=== PATIENT | female | born 1930 | race Caucasian/White ===

== ENCOUNTER 2016-08-18 07:55 | Outpatient (CLI) | payer MEDICARE ==
[~2016-08-18] VITALS: Ht 154.9 cm; Wt 59.1 kg
--- NOTE | ~2016-08-18 | HEMODYNAMI ---
PATIENT:YANNI GREENFIELD V MEDICAL RECORD: [id number] : 28 LOCATION:[facility] ADMISSION DATE: 08/18/16 Generatedon:08/18/201611:31 Patient name: YANNI GREENFIELD Patient #: [id number] SSN: [id number] : 1930 Date of study: 08/18/2016 Page: Of Hemodynamic Procedure Report Patient Data Patient Demographics Procedure consent was obtained First Name: YANNI Gender: Female Last Name: GIN : 1930 Middle Initial: V Age: 85 year(s) Patient #: [id number] Race: SSN: [id number] Additional ID: [id number] Contact details Address: [address] [place] [address] State: [place] City: [place] Zip code: [address] Past Medical History Allergies Allergen Reaction Date Comments Reported Other allergy 08/18/2016 codeine, sulfa Admission Admission Data Admission Date: 08/18/2016 Admission Time: 7:55 Arrival Date: 08/18/2016 Arrival Time: 10:00 Admit Source: Other Insurance Payor: Medicare Height (in.): 51 BSA: 1.4 (m2) Height (cm.): 129.54 BMI: 36.49 (kg/m2) Weight (lbs.): 135 Weight (kg.): 61.23 Lab Results Lab Result Date: 08/18/2016 Lab Result Time: 0:00 Biochemistry Name Units Result Min Max BUN mg/dl 14 --(--*-)-- 7 18 Creatinine mg/dl 0.9 --(-*--)-- 0.6 1.3 CBC Name Units Result Min Max Hemoglobin g/dl 9.8 *-(----)-- 13.5 17.5 Procedure Procedure Types Cath Procedure Diagnostic Procedure LHC LHC w/Coronaries w/Grafts PCI Procedure Coronary Stent Initial Miscellaneous Procedures Moderate Sedation up to 15 minutes Procedure Description Procedure Date Procedure Date: 08/18/2016 Procedure Start Time: 11:11 Procedure End Time: 11:26 Procedure Staff Name Function Roman Torres MD Performing Physician Tarsha Barrientos RT Scrub Maria Del Carmen Zheng RN Nurse Barbara Andrade RN Nurse Gwen Larson RT Monitor Procedure Data Cath Procedure Fluoroscopy Diagnostic fluoroscopy Total fluoroscopy Time: 4.4 time: 4.4 min min Diagnostic fluoroscopy Total fluoroscopy dose: 716 dose: 716 mGy mGy Contrast Material Contrast Material Type Amount (ml) Isovue 370 145 Entry Location Entry Primary Successful Side Size Upsize Upsize Entry Closure Succes sful Closure Location (Fr) 1 (Fr) 2 (Fr) Remarks Device Remarks Femoral Right 5 Fr 6 Fr Exoseal artery Short Estimated blood loss: 5 ml Diagnostic catheters Device Type Used For End Catheter Placement Cordis 5Fr Pigtail LV Angiography Catheter (MP) Cordis 5Fr JL 4.0 Left Coronary Catheter (MP) Angiography Cordis 5Fr 3DRC Catheter Right Coronary (MP) Angiography Diagnostic Infinity 5Fr SVG Angiography AR 2 MOD catheter Procedure Complications No complications Procedure Medications Medication Administration Route Dosage Oxygen NC 2 l/min Heparin Flush Bag added to field 2 bags (1000units/500ml NS) Lidocaine 2% added to field 20 0.9% NaCl I.V. 100 ml/hr Versed I.V. 1 mg Fentanyl I.V. 25 mcg Versed I.V. 0.5 mg Heparin Bolus I.V. 4000 units Integrilin (Bolus I.V. 5 ml 2mg/ml) Plavix P.O. 600 mg Hemodynamics Rest BSA: 1.4 (m2) HGB: 9.8 (g/dl) O2 Consumption: Estimated: 128.22 (ml/min) O2 Cons umption indexed: Estimated:91.59 (ml/min/m) Heart Rate: 78 (bpm) Pressure Samples Time Site Value (mmHg) Purpose Heart Use Rate(bpm) 11:12 LV 52/11,14 Snapshot 72 Snapshots Pre Cath Intra NCS Post Cath Vital Signs Time Heart Resp SPO2 NIBP (mmHg) Rhythm Pain Sedation Rate (ipm) (%) Status Level (bpm) 10:53:26 70 16 100 142/70(109) A-Fib 0 (11) 10(A) , No pain 10:57:40 73 15 100 138/72(106) A-Fib 0 (11) 10(A) , No pain 11:01:56 73 14 98 109/58(91) A-Fib 0 (11) 10(A) , No pain 11:06:55 83 26 98 Measuring A-Fib 0 (11) 10(A) , No pain 11:07:05 70 33 97 119/76(97) A-Fib 0 (11) 10(A) , No pain 11:11:17 72 17 97 108/54(93) A-Fib 0 (11) 9(A) , No pain 11:15:23 74 15 97 109/58(88) A-Fib 0 (11) 9(A) , No pain 11:19:32 68 16 99 107/51(91) A-Fib 0 (11) 9(A) , No pain 11:23:38 69 15 100 106/58(79) A-Fib 0 (11) 10(A) , No pain Medications Time Medication Route Dose Verified Delivered Reason Notes Effectiveness by by 10:52:52 Oxygen NC 2 Barbara Barbara used for l/min Raymond Raymond vest baster RN 10:53:02 Heparin Flush added 2 Babrara Barbara used for Bag to bags Raymond Raymond procedure (1000units/500ml field RN RN NS) 10:53:15 Lidocaine 2% added 20ml Barbara Barbara used for to vial Raymond Raymond procedure field RN RN 10:53:27 0.9% NaCl I.V. 100 Barbara Barbara used for ml/hr Raymond Raymond vest baster RN 11:09:35 Fentanyl I.V. 25 Barbara Barbara mcg Raymond Raymond RN RN 11:10:29 Versed I.V. 1 mg Barbara Barbara for sedation Raymond Raymond RN RN 11:18:19 Heparin Bolus I.V. 4000 Barbara Barbara for verif ied units Raymond Raymond anticoagulation with RN JASIEL torres 11:18:37 Versed I.V. 0.5 Barbara Barbara for sedation mg Raymond Raymond RN RN 11:20:33 Integrilin I.V. 5 ml Barbara Barbara for waste d 5 (Bolus 2mg/ml) Raymond Raymond antiplatelet ml of RN RN therapy vial 11:26:01 Plavix P.O. 600 Barbara Barbara for mg Raymond Raymond antiplatelet RN RN therapy Procedure Log Time Note 10::18 Informed consent obtained and on chart 10:27:50 Admit Source: Other 10::02 Patient Height : 129.54 cm 10:28:12 Patient Weight : 61.23 kg 10:50:23 Lab Result : Hemoglobin 9.8 g/dl 10:50:23 Lab Result : Creatinine 0.9 mg/dl 10:50:23 Lab Result : BUN 14 mg/dl 10:50:31 Procedure type changed to Cath procedure, Diagnostic procedure, LHC, LHC w/Coronaries w/Grafts, PCI procedure, Coronary Stent Initial, Miscellaneous Procedures, Moderate Sedation up to 15 minutes 10:50:53 Diagnostic Cath Status : Elective 10:51:45 Gwen Larson RT(R) sent for patient. Start room use. 10:51:46 Time tracking: Regular hours 10:51:51 Plan of Care:Hemodynamics will remain stable., Cardiac rhythm will remain stable., Comfort level will be maintained., Respiratory function will remain adequate., Patient/ family verbilizes understanding of procedure., Procedure tolerated without complication., Recovers from procedure without complications.. 10:52:03 Patient received from Pre/Post Procedure Room to [facility] 2 Alert and oriented. Tansferred to table in Supine position. 10:52:09 Warm blankets applied, and jackie hugger turned on for patient comfort. 10:52:10 Correct patient and procedure confirmed by team. 10:52:12 ECG and BP/O2 sat monitors applied to patient. 10:52:13 Vital chart was started 10:52:20 Baseline sample Acquired. 10:52:28 Rhythm: sinus rhythm 10:52:32 Full Disclosure recording started 10:52:52 Oxygen 2 l/min NC was administered by Barbara Andrade RN; used for procedure; 10:52:52 H&P Date Dictated: 08/14/2016 Within 30 days and on chart., H&P Addendum completed by physician on day of procedure. (MUST COMPLETE FOR ALL OUTPATIENTS). 10:53:02 Heparin Flush Bag (1000units/500ml NS) 2 bags added to field was administered by Barbara Andrade RN; used for procedure; 10:53:15 Lidocaine 2% 20ml vial added to field was administered by Barbara Andrade RN; used for procedure; 10:53:27 0.9% NaCl 100 ml/hr I.V. was administered by Barbara Andrade RN; used for procedure; 10:54:46 Pre-procedure instructions explained to patient. 10:54:46 Pre-op teaching completed and patient verbalized understanding. 10:54:48 Family in waiting room. 10:55:04 Patient allergic to Other allergycodeine, sulfa 10:55:15 Is the patient allergic to Iodine/contrast media? No. 10:55:17 Was the patient premedicated? No 10:55:20 Is patient on blood thinner?Yes 10:55:29 ACC The patient was administered the following blood thiners within the last 24 hours: Coumadin 10:55:40 Patient diabetic? Yes. 10:57:21 If diabetic: On Metformin? No 10:57:25 Previous problem with sedation/anesthesia? No ? 10:57:27 Snore? Yes 10:57:28 Sleep apnea? Yes 10:57:29 Deviated septum? No 10:57:30 Opens mouth fully? Yes 10:57:30 Sticks out tongue? Yes 10:57:32 Airway obstruction? No ? 10:57:36 Dentures? Yes out 10:57:53 Pre procedure: right dorsailis pedis pulse 1+ Palpable, but thready & weak; easily obliterated 10:58:01 Patient pain scale 0/10 ?. 10:58:08 IV patent on arrival in right forearm with 0.9% NaCl at KVO. 10:58:11 Lab results completed and on chart. 10:58:16 Right groin area was prepped with chlora-prep and draped in sterile fashion 10:58:17 Alarms reviewed by R. N. 10:58:17 Sharps counted by scrub and verified by R.N. 11:09:35 Fentanyl 25 mcg I.V. was administered by Barbara Andrade RN; ; 11:09:38 Physician arrived 11::40 --------ALL STOP TIME OUT------ 11::40 Final Timeout: patient, procedure, and site verified with staff and physician. All members of the team are in agreement. 11:09:42 Right groin site verified by team. 11:09:46 Physical assessment completed. ASA score P 2 - A patient with mild systemic disease as per Roman Torres MD. 11:09:50 Sedation plan: IV Moderate Sedation Versed, Fentanyl 11:10:20 Use device set Femoral Dx 11:10:21 Acist Syringe opened to sterile field. 11:10:22 Bag Decanter opened to sterile field. 11:10:23 Medline Cath Pack opened to sterile field. 11:10:23 Terumo 5Fr [place] Sheath opened to sterile field. 11:10:25 St Fabien 260cm J .035 wire opened to sterile field. 11:10:27 Acist Hand Control opened to sterile field. 11:10:29 Versed 1 mg I.V. was administered by Barbara Andrade RN; for sedation; 11:10:29 Acist Manifold opened to sterile field. 11:10:29 Diagnostic Infinity 5Fr Multipack catheter opened to sterile field. 11:10:30 Tegaderm 4 x 4 opened to sterile field. 11:11:13 Zero performed for pressure channel P1 11:11:24 Procedure started. 11:11:33 Local anesthetic to right femoral artery with Lidocaine 2% by Roman Torres MD.INITIAL ACCESS ONLY 11:11:40 A 5 Fr sheath was inserted into the Right Femoral artery 11:11:45 A Cordis 5Fr Pigtail Catheter (MP) was advanced over the wire and used for LV Angiography. 11:12:25 LV hemodynamics recorded. 11:12:26 LV gram done using CHANCE 11:12:28 Injector settings: Ml/sec: 5, Volume: 15, 11:12:33 EF : 55 % 11:12:37 Catheter removed. 11:12:41 A Cordis 5Fr JL 4.0 Catheter (MP) was advanced over the wire and used for Left Coronary Angiography. 11:13:57 LCA angiography performed. 11:13:59 Injector settings: Ml/sec: 3, Volume: 6, 11:14:03 Catheter removed. 11:14:08 A Cordis 5Fr 3DRC Catheter (MP) was advanced over the wire and used for Right Coronary Angiography. 11:14:54 MIKE angiography performed. 11:15:18 White Whisper J 300cm 0.014 guide wire opened to sterile field. 11:15:20 Terumo 6Fr [place] Sheath opened to sterile field. 11:15:20 Merit BasixCompak Inflation Kit opened to sterile field. 11:15:35 RCA angiography performed. 11:15:39 Injector settings: Ml/sec: 3, Volume: 6, 11:15:55 Catheter removed. 11:15:59 A Diagnostic Infinity 5Fr AR 2 MOD catheter was advanced over the wire and used for SVG Angiography. 11:18:19 Heparin Bolus 4000 units I.V. was administered by Barbara Andrade RN; for anticoagulation; verified with dr torres 11:18:37 Versed 0.5 mg I.V. was administered by Barbara Andrade RN; for sedation; 11:19:27 SVG angiography performed. 11:19:29 Catheter removed. 11:19:30 Proceeding to intervention. 11:20:19 Sheath upsized to a 6 Fr Short. 11:20:31 Spotlighttronic Launcher 6Fr EBU 4.0 guide catheter opened to sterile field. 11:20:33 Integrilin (Bolus 2mg/ml) 5 ml I.V. was administered by Barbara Andrade RN; for antiplatelet therapy; wasted 5 ml of vial 11::37 6 Fr ebu 4 guide catheter was inserted over the wire 11:20:53 whisper wire advanced. 11:20:54 Wire advanced across lesion. 11:22:42 Inflation Number: 1 A Biofreedom 2.5 x 11 stent (No Cost Implant) was prepped and advanced across the Mid CX. The stent was deployed at 13 JOHN for 0:10 (min:sec). 11:23:20 Stent catheter was removed intact over wire. 11:23:21 Wire removed. 11:23:22 Guide catheter removed. 11:24:30 Cordis 6Fr Exoseal opened to sterile field. 11:25:03 Sheath removed intact; hemostasis achieved with Exoseal to the Right Femoral artery. 11:25:06 Procedure ended.(Physican Out) :25:31 Fluoroscopy time 04.40 minutes. 11:25:50 Fluoroscopy dose: 716 mGy 11:25:50 Flurop Dose total: 716 11:25:53 Contrast amount:Isovue 370 145ml. 11:25:54 Sharps counted by scrub and verified by R.N. 11:25:56 Insertion/operative site no bleeding no hematoma. 11:25:58 Post-op/insertion site Right Femoral artery dressed using a 4 x 4 and Tegaderm. 11:26:00 Post right femoral artery:stable 11:26:01 Plavix 600 mg P.O. was administered by Barbara Andrade RN; for antiplatelet therapy; 11:26:02 Post Procedure Pulses reassessed and unchanged 11:26:04 Post procedure rhythm: unchanged. 11:26:07 Estimated blood loss: 5 ml 11:26:08 Post procedure instruction explained to patient.Patient verbalizes understanding. 11:26:08 Patient needs reinforcement of post procedure teaching. 11:26:11 Procedure and supply charges have been captured, reviewed, submitted and are correct. 11:26:15 Procedure Complication : No complications 11::18 Vital chart was stopped 11::19 See physician's report for complete and final results. 11::24 Report given to Pre/Post Procedure Room. 11::28 Patient transfered to Pre/Post Procedure Room with Stretcher. 11::31 Procedure ended. 11::31 Full Disclosure recording stopped 11::45 ACC-PCI Only Patient was given prescriptions, or instructed by Roman Torres MD to start/continue the following medications upon discharge: Plavix 11::46 End room use (Document Last) 11:30:34 Arrival Date: 08/18/2016 10:00:00 AM 11:30:41 Insurance Payor : Medicare Intervention Summary Intervention Notes Time ActionType Lesion and Equipment Action# Pressure Duration Attributes Used 11:22:42 Place stent Mid CX Biofreedom 1 13 00:10 2.5 x 11 stent (No Cost Implant) Device Usage Item Name Manufacture Quantity Catalog Hospital Part Current Minimal Lot# / Number Charge Number Stock Stock Serial# Code Acist Acist 1 [id number] [id number] 128087 928618 20 Syringe Medical Systems Inc Bag Microtek 1 2002S 882331 14498 871380 5 DecOtelic Medical Inc. Medline Cardinal 1 [id number] 789920 12122 084226 5 Cath FitBionic Terumo 5Fr Terumo 1 [id number] 050315 712739 988817 [address] Fabien 1 060284 633507 785597 727162 30 260cm J .035 wire Acist Hand Acist 1 43269 251622 163292 718542 5 Control Medical Systems Inc Acist Acist 1 85960 931939 836975 261538 5 [facility] Medical Systems Inc Diagnostic Cardinal 1 [id number] 230751 02802 163544 30 Infinity Health 5Fr Multipack catheter Tegaderm 4 3M 1 1626W 907796 903572 652946 5 x 4 Cordis 5Fr Cardinal 1 645130 5 Pigtail Health Catheter (MP) Cordis 5Fr Cardinal 1 757161 5 JL 4.0 Health Catheter (MP) Cordis 5Fr Cardinal 1 814110 5 3DRC Health Catheter (MP) White White 1 [id number] 864951 269072 819244 5 Whisper J Vascular 300cm 0.014 guide wire Terumo 6Fr Terumo 1 [id number] 468614 502667 537199 40 [place] Sheath Merit Merit 1 BH8439 622640 739514 243568 15 Enertec Systems Medical Inflation Kit Diagnostic Cardinal 1 [id number] 989328 553353 855039 20 Infinity Health 5Fr AR 2 MOD catheter Medtronic Medtronic 1 [id number] 744464 55815 367633 1 Launcher 6Fr EBU 4.0 guide catheter Biofreedom Biosensors 1 BF2-0292 553714 235573 5 [id number] 2.5 x 11 Europe SA stent (No Cost Implant) Cordis 6Fr Cardinal 1 EX600 573565 103069 816756 10 [facility] [employer] Signature Audit Kila Stage Time Signature Unsigned Intra-Procedure 08/18/2016 Gwen Larson 11:31:02 AM RT(R) Signatures Monitor : Gwen Larson RT Signature : Date : Time : [facility] [address] [place] [address]
[~2016-08-18 07:55] MED LIST: ACETAMINOPHEN500 M1 PO; ATIVAN0.5 MG PO; CIPRO500 MG; CIPRO500 MG PO; COLACE100 MG PO; COUMADIN5 MG PO; FOLIC ACID1 MG PO; GLUCOPHAGE500 MG; K-PHOS PO; LANOXIN125 MCG PO; LIORESAL 10 MG10 MG PO; LOMOTIL TABLET1 TAB PO; LOPRESSOR25 MG PO; MILK OF MAGNESI30 ML PO; MIRALAX17 GM PO; NIFEREX PO; PRAVACHOL40 MG PO; ULTRAM50 MG PO; ZAROXOLYN5 MG PO
[2016-08-18] MEDS ORDERED: FUROSEMIDE40 MG (08:22)
[2016-08-18] MEDS ORDERED: GLIMEPIRIDE1 MG PO (08:22)
[2016-08-18] MEDS ORDERED: ALDACTONE25 MG PO (08:23)
[2016-08-18] MEDS ORDERED: K-TAB10 MEQ PO (08:25)
[2016-08-18] MEDS ORDERED: OSTEO BI-FLEX1 EAC1 PO (08:26)
[2016-08-18] MEDS ORDERED: VITAMIN D31000 UNIT PO (08:26)
[2016-08-18] MEDS ORDERED: ASCORBIC ACID500 MG PO (08:27)
[2016-08-18] MEDS ORDERED: GINSENG PO (08:28)
[2016-08-18] MEDS ORDERED: ASTRAGALUS PO (08:29)
[2016-08-18] MEDS ORDERED: [UNRECOGNIZED DRUG - OTHER] PO (08:30)
[2016-08-18] MEDS ORDERED: ALPHA LIPOIC PO (08:30)
[2016-08-18] MEDS ORDERED: [UNRECOGNIZED DRUG - OTHER] PO (08:31)
[2016-08-18] MEDS ORDERED: QUERCETIN PO (08:31)
[2016-08-18] MEDS ORDERED: TUMERIC PO (08:31)
[2016-08-18] MEDS ORDERED: TUMS500 MG PO (08:32)
[2016-08-18 08:35] VITALS: BP 130/64; Ht 154.9 cm; Wt 59.1 kg
[2016-08-18 08:46] LABS: BASOPHILS 0.3 % (0-2); EOSINOPHILS 3.5 % (0-7); HEMATOCRIT 31.8 % (36.0-48.0); HEMOGLOBIN 9.8 g/dL (12-16); IMMATURE GRANULOCYTES 0.3 % (0-5); LYMPHOCYTES 20.6 % (15-50); MCH 28.9 pg (26.0-34.0); MCHC 30.8 g/dL (31.0-37.0); MCV 93.8 fL (80.0-100.0); MONOCYTES 13.1 % (2-11); NEUTROPHILS 62.2 % (40-80); PLATELET COUNT 155 10x3/uL (130-400); RBC 3.39 10x6/uL (4.00-5.40); RDW 15.1 % (11.5-14.5)
[2016-08-18 08:58] LABS: ANION GAP 12.1 mmol/L (8-16); CALCIUM 9.9 mg/dL (8.5-10.1); CARBON DIOXIDE 28.2 mmol/L (21.0-32.0); CREATININE - SERUM 1.4 mg/dL (0.6-1.3); POTASSIUM - SERUM 4.3 mmol/L (3.5-5.1)
[2016-08-18 09:16] LABS: CKMB 3.2 U/L (0.0-3.6); CREATINE KINASE 59 UL (21-215); TROPONIN-I 0.046 ng/mL (0.000-0.060)
[2016-08-18] MEDS ORDERED: PLAVIX75 MG PO (12:55)
--- NOTE | 2016-08-18 15:33 | NUR ---
1200 LYING FLAT, ROOM AIR W NO RESP DISTRESS. ALL VITALS WNL. R GROIN 6F EXOSEAL C/D/I WITH NO HEMATOMA OR BLEEDING. FAMILY AT BEDSIDE. DENIES NEEDS AT THIS TIME. 1245 R GROIN REMAINS C/D/I WITH NO HEMATOMA OR BLEEDING. VITALS WNL. 1345 EATING TURKEY SANDWICH WITH ASSIST FROM FAMILY. R GROIN C/D/I, VITALS ALL WNL. ROOM AIR NO DISTRESS. NO COMPLAINTS AT THIS TIME. 1500 ELEVATED HOB TO 30DEGREES, WILL MONITOR R GROIN FOR BLEEDING. 1535 AMBULATED TO BATHROOM TO VOID. R GROIN REMAINS C/D/I BACK TO BEDSIDE. ALL VITALS WNL.
--- NOTE | 2016-08-18 15:58 | NUR ---
PIV REMOVED FROM R AC WITH BANDAID APPLIED. UP TO BEDSIDE TO DRESS WITH ASSIST FROM DAUGHTER.
--- NOTE | 2016-08-18 15:59 | NUR ---
R GROIN REMAINS C/D/I WITH NO HEMATOMA OR BLEEDING. D/C INSTRUCTIONS DISCUSSED WITH PATIENT AND FAMILY AT BEDSIDE. WHEELED OUT VIA WHEELCHAIR BY CATH TEAM.
--- NOTE | 2016-08-19 18:08 | OP ---
PATIENT NAME: YANNI GREENFIELD V MEDICAL RECORD: [id number] :28 LOCATION:D.[facility] ADMISSION DATE: SURGEON: JAYLIN LOBO MD DATE OF OPERATION: 08/18/2016 PROCEDURES: 1. PTCA stent of left circumflex. 2. Left heart catheterization. 3. Selective coronary angiography. 4. Vein graft angiography. INDICATION: Angina and coronary artery disease. PROCEDURE PERFORMED: After informed consent was obtained and after detailed explanation of risks, benefits as well as alternative therapies, the patient elected to proceed with angiogram and angioplasty. The right femoral area was prepped and draped in normal sterile fashion. The right femoral artery was cannulated via modified Seldinger technique with placement of 6-Sammarinese sheath. All catheters exchanged through this sheath. FINDINGS: The left ventriculogram was performed in the standard 30-degree CHANCE view, reveals preserved cardiac wall motion throughout all segments. Overall ejection fraction is 60%. SELECTIVE CORONARY ANGIOGRAPHY: 1. Left main showed no significant angiographic disease. 2. Left anterior descending is totally occluded proximally. 3. Vein graft to the LAD is widely patent. 4. Left circumflex ____ has a 70% to 80% stenosis in the mid vessel. 5. The right coronary is widely patent with no significant disease. PTCA STENT OF THE LEFT CIRCUMFLEX: The stent used is 2.5 x 11 mm BioFreedom. Result was 0% residual stenosis. OVERALL IMPRESSION: Successful percutaneous transluminal coronary angioplasty stent of the left circumflex going from 70% to 80% initial stenosis to 0% residual. TRANSINT:[id number] Voice Confirmation ID: [id number] DOCUMENT ID: [id number] JAYLIN LOBO MD at 1808 CC: [id number] DICTATION DATE: 08/18/16 1131 TRAY PACKER: 08/18/162003 [facility] CLI 08/18/16 [place] [id number]
== END 2016-08-18 16:00 | disposition home or self-care (01) ==
LOC: D.CATH 07:55
PROVIDERS: Internal Medicine Interventional Cardiology
DX: I25.10 Atherosclerotic heart disease of native coronary artery without angina pectoris (principal); R06.02 Shortness of breath; I10 Essential (primary) hypertension; E78.5 Hyperlipidemia, unspecified; Z00.6 Encounter for examination for normal comparison and control in clinical research program
CPT/HCPCS: 93459; C9600

== ENCOUNTER → 2016-10-14 11:39 | Outpatient (CLI) | payer MEDICARE ==
[2016-08-18 08:35] VITALS: BMI 24.6
[~2016-10-14 11:39] MED LIST changes: +ALDACTONE25 MG PO; +ALPHA LIPOIC PO; +ASCORBIC ACID500 MG PO; +ASTRAGALUS PO; +FUROSEMIDE40 MG; +GINSENG PO; +GLIMEPIRIDE1 MG PO; +K-TAB10 MEQ PO; +OSTEO BI-FLEX1 EAC1 PO; +PLAVIX75 MG PO; +QUERCETIN PO; +TUMERIC PO; +TUMS500 MG PO; +VITAMIN D31000 UNIT PO; +[UNRECOGNIZED DRUG - OTHER] PO; +[UNRECOGNIZED DRUG - OTHER] PO
--- NOTE | 2016-10-14 14:19 | NUR ---
Nutrition education for DMT2, CKD stage 3, coumadin therapy, CHF: S: Pt reports she is very confused about what she can and can't eat due to her many health issues. Pt appears very frail and out of breath at this time. Pt reports she is retaining some fluid at this time due to CHF. O: 85 year old female Ht: 5'1" Wt: 130# IBW: 105# +/-10% BMI: 24.6 PMH: CHF, CVA, HTN, DMT2, CKF stage 3, a-fib Meds: coumadin, Glimperide, spironalactone A: Reviewed moderate protein, moderate CHO diet with emphasis on being consistent with meals and not skipping meals. Reviewed food lists of food to include and not include in daily diet. Advised pt to limit fruit to no more than 2-3 servings/day and eat low to moderate potassium fruits. Reviewed vegetable list to include/eliminate. Reviewed sample menus. Pt is still confused re: what to eat. RDN advised pt to eat what she likes to eat but keep portion sizes appropriate. Reviewed portion sizes of common foods eaten. Due to patients advanced age, food restrictions is not recommended. P: Provided pt with printed diet information and RDN name and phone number. RDN will be available if needed. Thank you for the consult.
== END ==
LOC: D.FANS 11:39
DX: E11.22 Type 2 diabetes mellitus with diabetic chronic kidney disease (principal); N18.3 Chronic kidney disease, stage 3 (moderate); I50.9 Heart failure, unspecified

== ENCOUNTER 2018-10-24 13:15 | Emergency (ER) | payer MEDICARE ==
[2018-10-24 13:31] VITALS: Ht 154.9 cm
[2018-10-24 14:07] LABS: BASOPHILS 0.5 % (0-2); EOSINOPHILS 2.3 % (0-7); HEMATOCRIT 33.8 % (36.0-48.0); HEMOGLOBIN 10.6 g/dL (12-16); LYMPHOCYTES 12.5 % (15-50); MCHC 31.4 g/dL (31.0-37.0); MCV 92.3 fL (80.0-100.0); MEAN PLATELET VOLUME 11.5 fL (7.4-10.4); MONOCYTES 9.7 % (2-11); RBC 3.66 10x6/uL (4.00-5.40); RDW 16.3 % (11.5-14.5); WBC 4.3 10x3/uL (4.8-10.8)
[2018-10-24 14:10] LABS: PLATELET COUNT 112 10x3/uL (130-400)
[2018-10-24 14:26] LABS: INR 2.4 (0.85-1.17); PROTIME 25.5 SECONDS (11.6-15.0)
[2018-10-24 14:27] LABS: APTT 49.1 SECONDS (22.8-39.4)
[2018-10-24 14:33] LABS: ALBUMIN 3.9 g/dL (3.4-5.0); ALKALINE PHOSPHATASE 48 U/L (46-116); ALT (SGPT) 22 U/L (10-68); BILIRUBIN - TOTAL 0.62 mg/dL (0.2-1.3); CALC OSMOLALITY 284 mosm/kg (275-300); CALCIUM 9.4 mg/dL (8.5-10.1); CARBON DIOXIDE 26.5 mmol/L (21.0-32.0); CHLORIDE - SERUM 100 mmol/L (98-107); CREATININE - SERUM 1.8 mg/dL (0.6-1.3); POTASSIUM - SERUM 4.6 mmol/L (3.5-5.1); PROTEIN - SERUM 7.5 g/dL (6.4-8.2); SODIUM 134 mmol/L (136-145); UREA NITROGEN 39 mg/dL (7-18); eGFR NON AFRICAN AMERICAN 28 mL/min (90-120)
[2018-10-24 14:34] LABS: GLUCOSE 248 mg/dL (74-106)
[2018-10-24 14:44] LABS: CKMB 0.4 U/L (0.0-3.6); CREATINE KINASE 61 UL (21-215)
[2018-10-24 14:46] LABS: TROPONIN-I < 0.017 ng/mL (0.000-0.060)
[2018-10-24] MEDS ORDERED: ULTRAM50 MG PO (15:00)
[2018-10-24 15:35] VITALS: BP 130/49
== END 2018-10-24 15:35 | disposition home or self-care (01) ==
LOC: D.ER 13:15
PROVIDERS: Family Medicine
DX: M54.6 Pain in thoracic spine (principal)

== ENCOUNTER → 2019-01-24 13:34 | Outpatient (CLI) | payer MEDICARE | END | disposition home or self-care (01) | LOC: D.RT 13:34 | PROVIDERS: ATTEND Emergency Medicine | DX: R06.02 Shortness of breath (principal) ==

== ENCOUNTER → 2019-03-07 12:01 | Outpatient (CLI) | payer MEDICARE ==
--- NOTE | ~2019-03-07 | EC ---
PATIENT:YANNI GREENFIELD V DATE OF SERVICE: 03/07/19 SEX: F MEDICAL RECORD: [id number] DATE OF : 28 [facility] AGE OF PATIENT: 88 ADMISSION DATE: 03/07/19 REFERRING PHYSICIAN: INTERPRETING PHYSICIAN: AJYLIN TORRES MD ECHOCARDIOGRAM REPORT ECHO CHARGES 4 ECHO COMPLETE Date: 03/07/19 CLINICAL DIAGNOSIS: MAURICIO/TR/AVR/MVR H/O CAD ECHOCARDIOGRAPHIC MEASUREMENTS (adult normal given) AC root (d.<3.7cm) 2.6 cm LV Septum d (<1.2 cm> 1.0 cm Valve Excursion 0.8 cm LV Septum (systole) 1.6 cm Left Atria (s.<4.0cm> 5.2 cm LVPW d(<1.2cm) 1.2 cm RV (d.<2.3cm) 3.1 cm LVPW (sytole) 1.8 cm LV diastole(<5.6CM) 5.0 cm MV E-F(>70mm/sec) cm LV systole 3.3 cm LVOT Diameter 1.8 cm MV exc.(>10mm) cm Est.ejection fraction (50-75%) % DOPPLER: LVIT cm/sec A 41.0 cm/sec E 116 cm/sec LA cm/sec RVSP 52.0 mmHg LVOT 83.0 cm/sec AOP1/2T m/s Asc. Ao 197 cm/sec RVOT 45.0 cm/sec RA cm/sec PA 70.0 cm/sec AV Gradient Peak 16.0 mmHg AV Mean 8.7 mmHg AV Area 1.1 cm MV Gradient Peak 9.3 mmHg MV Mean 2.7 mmHg MV Area cm COMMENTS: OP - HC Director Digital Sales: 1 MONTRELL ANDREW Cleaning Validation Consultant: 1 Dr. Torres TAPE# PACS Pericardial Effusion N DATE OF SERVICE: FINDINGS: 1. Left ventricular chamber size is mildly dilated. Left ventricular systolic function is moderately reduced at 35% to 40%. 2. Left atrium, right atrium, and right ventricle chamber sizes are moderately dilated. Left atrium measures 5.2 cm. 3. 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 The mitral valve was as well replaced with mechanical prosthesis with normal structure and function in ECHOCARDIOGRAM REPORT [id number] YANNI GREENFIELD V this position. 4. Doppler interrogation only reveals moderate tricuspid regurgitation, no other valvular insufficiency or stenosis. Pulmonary systolic pressure is estimated 52 mmHg. 5. No evidence of pericardial effusion or left ventricular thrombus. TRANSINT:[id number] Voice Confirmation ID: [id number] DOCUMENT ID: [id number] JAYLIN TORRES MD CC: [id number] DICTATION DATE: 03/08/19 1143 BACK WEDGER: 03/08/19 1248 DEP CLI 03/07/19 [place] [id number] [place] [id number]
== END | disposition home or self-care (01) ==
LOC: D.HCCECHO 12:01
PROVIDERS: ATTEND Internal Medicine Interventional Cardiology
DX: I25.10 Atherosclerotic heart disease of native coronary artery without angina pectoris (principal)

== ENCOUNTER 2019-03-14 07:09 | Outpatient (CLI) | payer MEDICARE ==
[~2019-03-14] VITALS: Ht 152.4 cm; Wt 59.1 kg
--- NOTE | ~2019-03-14 | HEMODYNAMI ---
PATIENT:YANNI GREENFIELD V MEDICAL RECORD: [id number] : 28 LOCATION:[facility] ADMISSION DATE: 03/14/19 Generatedon:03/15/201914:49 Patient name: YANNI GREENFIELD Patient #: [id number] SSN: [id number] : 1930 Date of study: 03/14/2019 Page: Of Hemodynamic Procedure Report Patient Data Patient Demographics First Name: YANNI Gender: Female Last Name: GIN : 1930 [facility] Initial: V Age: 88 year(s) Patient #: [id number] Race: SSN: [id number] Additional ID: [id number] Contact details [address]: [address] [place] [address] State: [place] City: [place] Zip code: [address] Past Medical History Allergies Allergen Reaction Date Comments Reported Other allergy 08/18/2016 codeine, sulfa Other allergy 03/14/2019 Codeine, Sulfa Admission Admission Data Admission Date: 03/14/2019 Admission Time: 7:09 Arrival Date: 03/14/2019 Arrival Time: 0:00 Admit Source: Other Insurance Payor: Private health insurance [facility] #: [id number] Height (in.): 59.84 BSA: 1.55 (m2) Height (cm.): 152 BMI: 25.54 (kg/m2) Weight (lbs.): 130.07 Weight (kg.): 59 Lab Results Lab Result Date: 03/14/2019 Lab Result Time: 0:00 Biochemistry Name Units Result Min Max BUN mg/dl 47 --(----)-* 7 18 Creatinine mg/dl 1.9 --(----)-* 0.6 1.3 eGFR ml/min 26 *-(----)-- 90 120 NONAFRICAN CBC Name Units Result Min Max Hemoglobin g/dl 11.6 *-(----)-- 13.5 17.5 Coagulation Name Units Result Min Max INR units 1.41 --(----)-* 0.85 1.17 PT sec 16.6 --(----)-* 11.6 15 Procedure Procedure Types Cath Procedure Diagnostic Procedure [facility] w/Coronaries w/Grafts FFR/IVUS FFR Initial Intra-Coronary IVUS Initial Sedation Charges Moderate Sedation up to 15 minutes Procedure Description Procedure Date Procedure Date: 03/14/2019 Procedure Start Time: 10:47 Procedure End Time: 11:12 Procedure Staff Name Function Roman Torres MD Performing Physician Tarsha Barrientos RT Monitor Sim Lindsey RN Nurse Melany Lara RT Scrub Indication Dyspnea Procedure Data Cath Procedure Fluoroscopy Diagnostic fluoroscopy Total fluoroscopy Time: 4.6 time: 4.6 min min Diagnostic fluoroscopy Total fluoroscopy dose: 579 dose: 579 mGy mGy Contrast Material Contrast Material Type Amount (ml) Isovue 300 56 Entry Location Entry Primary Successful Side Size Upsize Upsize Entry Closure Succes sful Closure Location (Fr) 1 (Fr) 2 (Fr) Remarks Device Remarks Femoral Right 5 Fr 6 Fr Exoseal artery Short Estimated blood loss: 10 ml Diagnostic catheters Device Type Used For End Catheter Placement MULTIPACK JL 4.0 5Fr Procedure catheter MULTIPACK 3DRC 5Fr Procedure catheter DIAGNOSTIC AR MOD 5Fr Procedure Catheter ([id number]) Procedure Complications No complications Procedure Medications Medication Administration Route Dosage 0.9% NaCl I.V. 100 ml/hr Oxygen etCO2 Nasal cannula 2 l/min Heparin Flush Bag added to field 2 bags (1000units/500ml NS) Lidocaine 2% added to field 20 Versed I.V. 1 mg Fentanyl I.V. 50 mcg Versed I.V. 0.5 mg Fentanyl I.V. 25 mcg Versed I.V. 0.5 mg Fentanyl I.V. 25 mcg Hemodynamics Rest BSA: 1.55 (m2) HGB: 11.6 (g/dl) O2 Consumption: Estimated: 210.8 (ml/min) O2 Con sumption indexed: Estimated:136 (ml/min/m) Pre Cath Intra NCS Post Cath Vital Signs Time Heart Resp SPO2 etCO2 NIBP (mmHg) Rhythm Pain Sedation Rate (ipm) (%) (mmHg) Status Level (bpm) 10:39:42 74 22 100 29.9 145/63(108) A-Fib 0 (11) 10(A) , No pain 10:44:00 74 18 97 38.1 137/66(105) A-Fib 0 (11) 10(A) , No pain 10:48:14 79 11 98 38.1 133/71(105) A-Fib 0 (11) 10(A) , No pain 10:52:26 66 16 95 38.1 144/77(119) A-Fib 0 (11) 10(A) , No pain 10:56:48 83 12 93 35.8 132/60(107) A-Fib 0 (11) 9(A) , No pain 11:01:00 77 15 94 29.9 129/70(108) A-Fib 0 (11) 9(A) , No pain 11:05:14 73 13 94 133/64(96) A-Fib 0 (11) 10(A) , No pain 11:09:30 80 15 95 132/62(117) A-Fib 0 (11) 10(A) , No pain Medications Time Medication Route Dose Verified Delivered Reason Notes Eff ectiveness by by 10:36:59 0.9% NaCl I.V. 100 Sim Sim Per ml/hr César Lindsey physician RN RN 10:37:09 Oxygen etCO2 2 Sim Sim for low 02 Nasal l/min Lorigan Lorigan sats cannula RN RN 10:37:19 Heparin Flush added 2 Sim Sim used for Bag to bags Lorigan Lorigan procedure (1000units/500ml field RN RN NS) 10:37:31 Lidocaine 2% added 20ml Sim Sim for local to vial Lorigan Lorigan anesthetic field RN RN 10:47:19 Versed I.V. 1 mg Sim Sim for Lorigan Lorigan sedation RN RN 10:47:32 Fentanyl I.V. 50 Sim Sim for mcg Lorigan Lorigan sedation RN RN 10:50:08 Versed I.V. 0.5 Sim Sim for mg Lorigan Lorigan sedation RN RN 10:50:14 Fentanyl I.V. 25 Sim Sim for mcg Lorigan Lorigan sedation RN RN 10:54:40 Versed I.V. 0.5 Sim Sim for mg Lorigan Lorigan sedation RN RN 10:54:45 Fentanyl I.V. 25 Sim Sim for mcg Lorigan Lorigan sedation RN gas attendant Log Time Note 10:17:48 Admit Source: Other 10:17:50 Arrival Date: 03/14/2019 12:00:00 AM 10:17:59 Insurance Payor : Private health insurance 10:18:19 Patient Height : 59.84 inches 10:18:22 Patient Weight : 130.07 lbs 10:19:25 Lab Result : Hemoglobin 11.6 g/dl 10:19:25 Lab Result : PT 16.6 sec 10::25 Lab Result : INR 1.41 units 10::25 Lab Result : BUN 47 mg/dl 10::25 Lab Result : Creatinine 1.9 mg/dl 10:19:25 Lab Result : eGFR NONAFRICAN 26 ml/min 10:19:32 Diagnostic Cath Status : Elective 10:20:16 Indication : Dyspnea 10:21:27 ACC Patient presents with Stable Angina CCS Anginal Class 3--Marked limitation of physical activity, angina occurs with ordinary activity.. 10:21:32 Procedure Status Elective Heart Cath (OP). 10:21:34 Sim Lindsey RN sent for patient. Start room use. 10:21:35 Time tracking: Regular hours (M-F 7:00 - 5:00) 10:21:40 Plan of Care:Hemodynamics will remain stable., Cardiac rhythm will remain stable., Comfort level will be maintained., Respiratory function will remain adequate., Patient/ family verbilizes understanding of procedure., Procedure tolerated without complication., Recovers from procedure without complications.. 10:21:52 Patient received from Pre/Post Procedure Room to CCL 2 Alert and oriented. Tansferred to table in Supine position. 10:21:56 Warm blankets applied, and jackie hugger turned on for patient comfort. 10:21:57 Correct patient and procedure confirmed by team. 10:23:54 H&P Date Dictated: 03/07/2019 Within 30 days and on chart., H&P Addendum completed by physician on day of procedure. (MUST COMPLETE FOR ALL OUTPATIENTS). 10:23:56 Pre-procedure instructions explained to patient. 10:23:58 Family in waiting room. 10:24:00 Patient NPO since Midnight. 10:24:32 Patient allergic to Other allergyCodeine, Sulfa 10:24:35 Is the patient allergic to Iodine/contrast media? No. 10:24:42 Was the patient premedicated? Yes 10:24:43 Is patient on blood thinner?Yes 10:24:49 ACC The patient was administered the following blood thiners within the last 24 hours: Coumadin 10:25:33 Patient diabetic? Yes. 10:25:34 If diabetic: On Metformin? No 10:25:43 Sleep apnea? Yes 10:25:48 Airway obstruction? Yes COPD 10:26:06 Dentures? Yes sleeps in them 10:26:13 Snore? No 10:30:53 Patient pain scale 0/10 ?. 10:31:02 IV patent on arrival in right forearm with 0.9% NaCl at [facility]. 10:31:05 Lab results completed and on chart. 10:31:11 Stress Test: no; N/A ? 10:31:20 Right groin area was prepped with chlora-prep and draped in sterile fashion 10:31:26 Alarms reviewed by R. N. 10:31:27 Sharps counted by scrub and verified by R.N. 10:31:39 5) <15 or on dialysis Very severe, or end stage kidney failure. 10:32:11 Sedation plan: IV Moderate Sedation Medication:Versed, Fentanyl 10:36:59 0.9% NaCl 100 ml/hr I.V. was administered by Sim Lindsey RN; Per physician; Verbal order read back and verified. 10:37:09 Oxygen 2 l/min etCO2 Nasal cannula was administered by Sim Lindsey RN; for low 02 sats; Verbal order read back and verified. 10:37:19 Heparin Flush Bag (1000units/500ml NS) 2 bags added to field was administered by Sim Lindsey RN; used for procedure; Verbal order read back and verified. 10:37:31 Lidocaine 2% 20ml vial added to field was administered by Sim Lindsey RN; for local anesthetic; Verbal order read back and verified. 10:37:38 Vital chart was started 10:37:57 Physician arrived 10:37:58 --------ALL STOP TIME OUT------ 10:37:59 Final Timeout: patient, procedure, and site verified with staff and physician. All members of the team are in agreement. 10:38:01 Right groin site verified by team. 10:38:06 Fire Safety Assessment: A--An alcohol-based skin anteseptic being used preoperatively., C--Open oxygen or nitrous oxide is being used., D--An ESU, laser, or fiber-optic light is being used. 10:38:10 Physical assessment completed. ASA score P 3 - A patient with severe systemic disease as per Roman Torres MD. 10:38:20 Use device set Femoral Dx 10:41:25 ACIST Syringe (39319) opened to sterile field. 10:41:26 Medline Cath Pack ([id number]) opened to sterile field. 10:41:26 Bag Decanter (2002S) opened to sterile field. 10:41:53 ACIST Hand Control (45058) opened to sterile field. 10:41:54 DIAGNOSTIC Multipack 5Fr catheter set (FB8791) opened to sterile field. 10:41:54 ACIST Manifold (69251) opened to sterile field. 10:41:55 Tegaderm 4 x 4 (1626W) opened to sterile field. 10:41:58 SHEATH 5FR [place] (FXX973) opened to sterile field. 10:41:59 EMERALD Guide Wire (413-779) opened to sterile field. 10:47:19 Versed 1 mg I.V. was administered by Sim Lindsey RN; for sedation; Verbal order read back and verified. 10:47:32 Fentanyl 50 mcg I.V. was administered by Sim Lindsey RN; for sedation; Verbal order read back and verified. 10:47:55 Full Disclosure recording started 10:47:55 Procedure started. 10:47:58 Local anesthetic to right femoral artery with Lidocaine 2% by Tarsha SCHAEFFER(R).INITIAL ACCESS ONLY 10:49:42 A 5 Fr sheath was inserted into the Right Femoral artery 10:49:47 J wire advanced. 10:50:08 Versed 0.5 mg I.V. was administered by Sim Lindsey RN; for sedation; Verbal order read back and verified. 10:50:13 A MULTIPACK JL 4.0 5Fr catheter was advanced over the wire and used for Procedure. 10:50:14 Fentanyl 25 mcg I.V. was administered by Sim Lindsey RN; for sedation; Verbal order read back and verified. 10:50:59 LCA angiography performed. 10:51:38 Catheter removed. 10:52:25 A MULTIPACK 3DRC 5Fr catheter was advanced over the wire and used for Procedure. 10:52:32 RCA angiography performed. 10:52:33 Catheter removed. 10:53:01 A DIAGNOSTIC AR MOD 5Fr Catheter (617262N) was advanced over the wire and used for Procedure. 10:53:10 SVG to LAD angiography performed. 10:54:40 Versed 0.5 mg I.V. was administered by Sim Lindsey RN; for sedation; Verbal order read back and verified. 10:54:45 Fentanyl 25 mcg I.V. was administered by Sim Lindsey RN; for sedation; Verbal order read back and verified. 10:55:31 Braggadocio Verrata Plus pressure wire (90402H) opened to sterile field. 10:55:31 INFLATOR Merit BasixCompak (OO2592) opened to sterile field. 10:55:31 SHEATH 6FR [place] (GEZ436) opened to sterile field. 10:55:32 GUIDE 6FR XBLAD 3.5 catheter ([id number]) opened to sterile field. 10:55:37 Proceeding to intervention. 10:56:02 Sheath upsized to a 6 Fr Short. 10:56:11 6 Fr XBLAD3.5 guide catheter was inserted over the wire 10:56:35 guide removed exchanged for XB4 10:56:44 GUIDE 6FR XB 4.0 catheter (87733881) opened to sterile field. 10:56:57 6 Fr XB4 guide catheter was inserted over the wire 10:58:02 FFR/IFR wire advanced. 11:00:52 pCirc lesion measured at .96 with IFR 11:01:24 Braggadocio Lovelock Eagleye IVUS Catheter (78892M) opened to sterile field. 11:02:00 IVUS catheter advanced over wire. 11:02:04 IVUS pass to LMCA lesion performed. 11:07:27 EXOSEAL 6Fr (EX600) opened to sterile field. 11:08:51 IVUS measurement 57.3 %. 11:09:52 Sheath removed intact; hemostasis achieved with Exoseal to the Right Femoral artery. 11:09:55 Procedure ended.(Physican Out) 11:10:27 Fluoroscopy time 04.60 minutes. 11:10:30 Flurop Dose total: 579 11:10:30 Fluoroscopy dose: 579 mGy 11:10:35 Dose Area Product 74459 mGy/cm. 11:10:44 Contrast amount:Isovue 300 56ml. 11:10:46 Maximum allowable dose exceeded? Yes. 11:10:47 Sharps counted by scrub and verified by R.N. 11:10:49 Insertion/operative site no bleeding no hematoma. 11:10:53 Post-op/insertion site Right Femoral artery dressed using a 4 x 4 and Tegaderm. 11:10:56 Post Procedure Pulses reassessed and unchanged 11:11:03 Post-procedure physical assessment completed. ASA score P 2 - A patient with mild systemic disease as per Roman Torres MD. 11:11:06 Post procedure rhythm: unchanged. 11:11:09 Estimated blood loss: 10 ml 11:11:12 Post procedure instruction explained to patient.Patient verbalizes understanding. 11:11:57 Procedure type changed to Cath procedure, Diagnostic procedure, LHC, C w/Coronaries w/Grafts, FFR/IVUS, FFR Initial, Intra-Coronary IVUS Initial, Sedation Charges, Moderate Sedation up to 15 minutes 11:11:59 Procedure and supply charges have been captured, reviewed, submitted and are correct. 11:12:15 Procedure and supply charges have been captured, reviewed, submitted and are correct. 11:12:27 Procedure Complication : No complications 11:12:29 Vital chart was stopped 11:12:32 [facility] Findings: mild to moderate CAD (<70%) 11:12:34 Operative report dictated upon procedure completion. 11:12:36 See physician's report for complete and final results. 11:12:41 Report given to Pre/Post Procedure Room. 11:12:46 Patient transfered to Pre/Post Procedure Room with Stretcher. 11:12:49 Procedure ended. 11:12:49 Full Disclosure recording stopped 11:12:57 End room use (Document Last) 11:13:22 End room use (Document Last) Device Usage Item Name Manufacture Quantity Catalog Hospital Part Current Minima l Lot# / Number Charge Number Stock Stock Serial# Code [id number] Acist 1 71662 737689 350733 587028 20 Hygeia Personal Care Products (58530TicketFire Bag Microtek 1 129468 87155 138788 5 Decanter Medical Inc. (2001S) Medline Medline 1 [id number] 566561 13017 244084 5 Cath Pack ([id number]) ACIST Hand Acist 1 94835 922044 119143 281198 5 Control Medical (99095) Systems Inc ACIST Acist 1 32117 120758 293807 177610 5 Manifold Medical (73778) Systems Inc DIAGNOSTIC Cardinal 1 [id number] 593747 70622 254767 30 Multipack Plix 5Fr catheter set (MT7272) Tegaderm 4 3M 1 1626W 620781 086045 481992 5 x 4 (1626W) SHEATH 5FR Terumo 1 BXH433 385093 303288 339175 5 [place] (SHZ598) EMERALD Cardinal 1 502-455 148469 384325 167919 5 Guide Wire Health (502-455) MULTIPACK Cardinal 1 738348 5 JL 4.0 5Fr Health catheter MULTIPACK Cardinal 1 662774 5 3DRC 5Fr Health catheter DIAGNOSTIC Cardinal 1 [id number] 099340 108789 592322 15 AR MOD 5Fr Health Catheter (072130Z) SHEATH 6FR Terumo 1 KUG336 010289 939189 897414 40 [place] (VHJ586) INFLATOR Merit 1 LU8642 634736 622757 394172 15 Primedic Medical BasixCompak (LT9528) Braggadocio Braggadocio 1 42320T 713548 162313227 262002 5 Verrata Plus pressure wire (57616K) GUIDE 6FR Cardinal 1 19751829 245910 039187 565024 10 XBLAD 3.5 Health catheter (60838176) GUIDE 6FR Cardinal 1 [id number] 392513 216163 401304 2 XB 4.0 Health catheter (17215940) Braggadocio Braggadocio 1 48095Q 889235 330056 520126 8 Lovelock Eagleye IVUS Catheter (14385G) EXOSEAL 6Fr Cardinal 1 EX600 038619 039568 680967 10 (EX600) Health Signature Audit [place] Stage Time Signature Unsigned Intra-Procedure 03/14/2019 Tarsha Barrientos 11:12:15 AM RT(R) Intra-Procedure 03/14/2019 Sim 11:13:22 AM César WEATHERS Intra-Procedure 03/14/2019 Roman Torres MD 11:14:50 AM 03/15/2019 2:44:32 PM Intra-Procedure 03/15/2019 Roman Torres 2:49:42 PM [address] [id number] [place] [address]
[~2019-03-14 07:09] MED LIST changes: +METOLAZONE5 MG PO
[2019-03-14] MEDS ORDERED: LOVENOX60 MG/0.6 SC (08:07)
[2019-03-14 08:16] VITALS: BP 153/56; Ht 152.4 cm; Wt 59.1 kg
[2019-03-14] MEDS ORDERED: FUROSEMIDE40 MG PO (08:26)
[2019-03-14 08:41] LABS: BASOPHILS 0.6 % (0-2); EOSINOPHILS 2.5 % (0-7); HEMATOCRIT 37.6 % (36.0-48.0); HEMOGLOBIN 11.6 g/dL (12-16); IMMATURE GRANULOCYTES 0.3 % (0-5); LYMPHOCYTES 24.3 % (15-50); MCH 29.4 pg (26.0-34.0); MCHC 30.9 g/dL (31.0-37.0); MCV 95.2 fL (80.0-100.0); MEAN PLATELET VOLUME 11.1 fL (7.4-10.4); MONOCYTES 12.2 % (2-11); NEUTROPHILS 60.1 % (40-80); RBC 3.95 10x6/uL (4.00-5.40); RDW 18.1 % (11.5-14.5); WBC 3.6 10x3/uL (4.8-10.8)
[2019-03-14 08:49] LABS: PLATELET COUNT 146 10x3/uL (130-400)
[2019-03-14 08:53] LABS: ANION GAP 13.9 mmol/L (8-16); CALCIUM 10.3 mg/dL (8.5-10.1); CARBON DIOXIDE 28.1 mmol/L (21.0-32.0); CREATININE - SERUM 1.9 mg/dL (0.6-1.3)
[2019-03-14 08:56] LABS: INR 1.41 (0.85-1.17); PROTIME 16.6 SECONDS (11.6-15.0)
--- NOTE | 2019-03-14 11:15 | NUR ---
REC TO ROOM SUPINE, MONITORING INITIATED. R GROIN SOFT, CDI. NO BLEEDING/HEMATOMA. HR 74 NSR, SAT 100% ON 2LNC, BP 147/60
--- NOTE | 2019-03-14 11:35 | NUR ---
R GROIN CDI, SOFT. NO BLEEDING/HEMATOMA. PPP. GRANDSON AT BEDSIDE. HR 64, NSR. BP 113/38, SAT 92% ON 2LNC.
--- NOTE | 2019-03-14 11:50 | NUR ---
R GROIN CDI, SOFT. NO BLEEDING/HEMATOMA. PPP.
--- NOTE | 2019-03-14 12:10 | NUR ---
R GROIN SOFT, NO BLEEDING/HEMATOMA. HR 73 NSR W OCC PVC. BP 139/55. O2 SAT 100% ON 2LNC. RR 16.
--- NOTE | 2019-03-14 12:25 | NUR ---
R GROIN SOFT, NO BLEEDING/HEMATOMA. PPP. RAISED HOB, REMOVED O2. SANDWICH, DRINK PROVIDED.
--- NOTE | 2019-03-14 12:55 | NUR ---
PT REQUESTED SOUP INSTEAD OF SANDWICH. CHICKEN NOODLE SOUP PROVIDED. [place] SODA. R GROIN SOFT, NO BLEEDING/HEMATOMA.
--- NOTE | 2019-03-14 13:15 | NUR ---
GRANDSON BACK TO ROOM. MONITORING DISCONTINUED, IV REMOVED, TIP INTACT. ASSISTED PT TO DRESS. 1325 PT TO RESTROOM VIA WHEELCHAIR. 1335 PT BACK TO ROOM, DC TEACHING WITH PT AND GRANDSON. VERBALIZE UNDERSTANDING. 1345 HOME VIA PRIVATE CAR W GRANDSON, PT HAS ALL BELONGINGS.
--- NOTE | 2019-03-17 15:25 | OP ---
PATIENT NAME: YANNI GREENFEILD V MEDICAL RECORD: [id number] :28 LOCATION:D.CAT ADMISSION DATE: SURGEON: JAYLIN LOBO MD DATE OF OPERATION: 03/14/2019 PROCEDURES: 1. Intravascular ultrasound of left main. 2. IFR left circumflex. 3. Left heart catheterization. 4. Vein graft angiography. 5. Coronary angiography. INDICATION: Congestive heart failure, new cardiomyopathy, and angina. PROCEDURE IN DETAIL: After informed consent was obtained and after a detailed description of the risks, benefits as well as alternative therapies. The patient elected to proceed with angiogram and heart catheterization. The right femoral area was prepped and draped in normal sterile fashion. The right femoral artery was cannulated via modified Seldinger technique with placement of 6-Vincentian sheath. All catheters exchanged through this sheath. FINDINGS: The left ventriculogram was not performed secondary to artificial aortic valve. SELECTIVE CORONARY ANGIOGRAPHY: 1. Left main is with 57% stenosis distally confirmed by intravascular ultrasound. 2. Left circumflex has a questionable stenosis at the ostium. However, the IFR was normal at 0.96. 3. Left anterior descending is totally occluded, hence the left circumflex stenosis not significant due to IFR. 4. Vein graft to the distal LAD is widely patent. Distal LAD is widely patent. 5. Right coronary is widely patent. OVERALL IMPRESSION: Wide patency of the vein graft to the left anterior descending. No significant stenosis of the circumflex or right coronary artery. Continue medical management of the cardiomyopathy and congestive heart failure. TRANSINT:[id number] Voice Confirmation ID: [id number] DOCUMENT ID: [id number] JAYLIN LOBO MD at 1525 CC: [id number] DICTATION DATE: 03/14/19 1114 EXPERIENCED TRUCK DRIVER: 03/14/192051 DEP CLI 03/14/19 [place] [id number] [place] [id number]
== END 2019-03-14 13:45 | disposition home or self-care (01) ==
LOC: D.CATH 07:09
PROVIDERS: ATTEND Internal Medicine Interventional Cardiology
DX: I50.9 Heart failure, unspecified (principal); I42.9 Cardiomyopathy, unspecified; I25.119 Atherosclerotic heart disease of native coronary artery with unspecified angina pectoris; I07.1 Rheumatic tricuspid insufficiency; I11.0 Hypertensive heart disease with heart failure; Z95.0 Presence of cardiac pacemaker; R06.00 Dyspnea, unspecified; E78.5 Hyperlipidemia, unspecified

== ENCOUNTER 2019-03-19 13:24 | Emergency (ER) | payer MEDICARE ==
[~2019-03-19] VITALS: Ht 152.4 cm; Wt 59.1 kg
[~2019-03-19 13:24] MED LIST changes: +FUROSEMIDE40 MG PO; +LOVENOX60 MG/0.6 SC
[2019-03-19 13:32] VITALS: BP 139/58; Ht 152.4 cm; Wt 59.1 kg
[2019-03-19] MEDS ORDERED: CYCLOBENZAPRINE10 MG PO (13:37)
[2019-03-19] MEDS ORDERED: VALIUM5 MG PO (13:38)
== END 2019-03-19 15:56 | disposition home or self-care (01) ==
LOC: D.ER 13:24
DX: M54.9 Dorsalgia, unspecified (principal); I12.9 Hypertensive chronic kidney disease with stage 1 through stage 4 chronic kidney disease, or unspecified chronic kidney disease; E11.22 Type 2 diabetes mellitus with diabetic chronic kidney disease; N18.3 Chronic kidney disease, stage 3 (moderate); Z79.84 Long term (current) use of oral hypoglycemic drugs; Z95.0 Presence of cardiac pacemaker; Z95.5 Presence of coronary angioplasty implant and graft; Z95.1 Presence of aortocoronary bypass graft; J44.9 Chronic obstructive pulmonary disease, unspecified

== ENCOUNTER → 2019-08-01 22:01 | Outpatient (CLI) | payer MEDICARE ==
[2019-03-19 13:32] VITALS: BMI 25.4
[~2019-08-01 22:01] MED LIST changes: +CYCLOBENZAPRINE10 MG PO; +VALIUM5 MG PO
[2019-08-01 22:56] LABS: BASOPHILS 0.7 % (0-2); EOSINOPHILS 3.5 % (0-7); HEMATOCRIT 41.9 % (36.0-48.0); HEMOGLOBIN 12.5 g/dL (12-16); LYMPHOCYTES 17.4 % (15-50); MCH 27.5 pg (26.0-34.0); MCHC 29.8 g/dL (31.0-37.0); MCV 92.1 fL (80.0-100.0); MEAN PLATELET VOLUME 11.2 fL (7.4-10.4); MONOCYTES 10.4 % (2-11); PLATELET COUNT 155 10x3/uL (130-400); RBC 4.55 10x6/uL (4.00-5.40); RDW 18.5 % (11.5-14.5)
[2019-08-02 00:02] LABS: ERYTHROCYTE SEDIMENTATION RATE 16 mm/hr (0-42)
== END | disposition home or self-care (01) ==
LOC: D.LABREF 22:01
PROVIDERS: ATTEND Orthopaedic Surgery
DX: M25.562 Pain in left knee (principal)

== ENCOUNTER → 2019-08-09 11:42 | Outpatient (CLI) | payer MEDICARE ==
[2019-03-19 13:32] VITALS: BMI 25.4
== END | disposition home or self-care (01) ==
LOC: D.NM 09:00
PROVIDERS: ATTEND Orthopaedic Surgery
DX: T84.84XA Pain due to internal orthopedic prosthetic devices, implants and grafts, initial encounter (principal)